=== PATIENT | male | born 1935 | race Caucasian/White ===

== ENCOUNTER 2025-01-31 19:39 | Emergency (ER) | payer BC ==
[~2025-01-31] VITALS: Ht 170.2 cm; Wt 73.9 kg
[2025-01-31] MEDS ORDERED: TDAP [DIPH/PERTUSSIS/TET] 0.5 ML VIAL IM ONE (20:16)
[2025-01-31] MEDS: TDAP [DIPH/PERTUSSIS/TET] 0.5 ML VIAL IM ONE (20:38)
[2025-01-31] MEDS: IV NS 0.9% 1,000 ML BAG IV ONE (20:38)
[2025-01-31 21:30] VITALS: BP 139/91; TEMP 98.4; O2SAT 97
== END 2025-01-31 21:31 | disposition home or self-care (01) ==
LOC: ER 19:49
DX: S00.81XA Abrasion of other part of head, initial encounter (principal); E78.5 Hyperlipidemia, unspecified; R51.9 Headache, unspecified; I51.9 Heart disease, unspecified; Z23 Encounter for immunization; W01.0XXA Fall on same level from slipping, tripping and stumbling without subsequent striking against object, initial encounter; Y93.01 Activity, walking, marching and hiking; Y93.89 Activity, other specified; Y99.8 Other external cause status
CPT/HCPCS: 99285; 70450; 96360; 90471; 90715; 70486; J7030